=== PATIENT | female | born 1975 | race Caucasian/White ===

== ENCOUNTER 2018-06-10 21:18 | Emergency (ER) | payer BC, OTHER ==
[~2018-06-10] VITALS: Ht 157.5 cm; Wt 63.6 kg
[2018-06-10] MEDS ORDERED: DOXY100C37 PO (22:19)
[2018-06-10] MEDS ORDERED: NORCO, ANEXSIA 5/325MG TABLET (HYDROcodone/ACETAMINOPHEN) PO ONE (22:30)
[2018-06-10] MEDS ORDERED: DOXYCYCLINE HYCLATE 100 MG TAB PO ONE (22:30)
[2018-06-10] MEDS ORDERED: NORCO 5/325MG TABLET (BULK FOR ED) PO ONE (22:30)
[2018-06-10 22:56] VITALS: BP 112/72
== END 2018-06-10 22:46 | disposition home or self-care (01) ==
LOC: M ED 21:18
DX: L03.116 Cellulitis of left lower limb (principal); Z86.14 Personal history of Methicillin resistant Staphylococcus aureus infection; Z91.030 Bee allergy status

== ENCOUNTER → 2018-12-24 | Outpatient (REF) | payer OTHER ==
[~2018-12-24] MED LIST: DOXY100C37 PO
[2018-12-26 15:47] LABS: Lyme Disease IgG/IgM Antibodie <0.91 ISR (0.00-0.90); Lyme Disease IgM Ab Quantitati <0.80 index (0.00-0.79)
== END ==
LOC: M LAB REF 17:08
PROVIDERS: ATTEND Nurse Practitioner Adult Health
DX: M79.642 Pain in left hand (principal)

== ENCOUNTER → 2019-05-26 | Outpatient (REF) | payer OTHER ==
[~2019-05-26] MED LIST changes: +AMOX875T; +DIFL150T PO; +LIDVISCBTL PO; +PENI500T PO; +RIZA10TA58
[2019-05-26 18:38] LABS: BASO # 0.1 10^3/uL (0.0-0.2); BASO % 0.6 % (0.0-1.0); EOS # 0.2 10^3/uL (0.0-0.5); HEMATOCRIT 40.3 % (36.0-47.0); HEMOGLOBIN 12.8 g/dl (12.0-15.5); LYMPH # 2.3 10^3/uL (1.5-5.0); LYMPH % 27.5 % (24.0-44.0); MEAN CORPUSCULAR HEMOGLOBIN 29.9 pg (27.0-33.0); MEAN CORPUSCULAR HGB CONC 31.8 g/dl (32.0-36.5); MEAN CORPUSCULAR VOLUME 94.2 fl (80.0-96.0); MONO # 0.5 10^3/uL (0.0-0.8); MONO % 6.3 % (0.0-5.0); NEUTROPHILS # 5.3 10^3/uL (1.5-8.5); NEUTROPHILS % 63.1 % (36.0-66.0); PLATELET COUNT, AUTOMATED 262 10^3/uL (150-450); RED BLOOD COUNT 4.28 10^6/uL (4.00-5.40); WHITE BLOOD COUNT 8.4 10^3/uL (4.0-10.0)
[2019-05-26 18:54] LABS: FREE T4 0.96 NG/DL (0.76-1.46); THYROID STIMULATING HORMONE 1.15 uIU/ML (0.358-3.740)
[2019-05-26 18:56] LABS: FOLLICLE STIMULATING HORMONE 4.5 mIU/mL; LUTEINIZING HORMONE 3.7 mIU/mL
== END ==
LOC: M LAB REF 17:40
PROVIDERS: ATTEND Obstetrics & Gynecology
DX: N92.0 Excessive and frequent menstruation with regular cycle (principal)

== ENCOUNTER 2019-05-31 11:43 | Emergency (ER) | payer OTHER ==
[~2019-05-31] VITALS: Ht 157.5 cm; Wt 71.1 kg
[2019-05-31] MEDS ORDERED: KETOROLAC 60 MG/2 ML VIAL (J1885) IM ONE (12:15)
[2019-05-31 12:34] LABS: BASO # 0.1 10^3/uL (0.0-0.2); BASO % 0.5 % (0.0-1.0); EOS # 0.1 10^3/uL (0.0-0.5); EOS % 1.3 % (0.0-3.0); HEMATOCRIT 42.4 % (36.0-47.0); HEMOGLOBIN 13.4 g/dl (12.0-15.5); LYMPH # 1.9 10^3/uL (1.5-5.0); LYMPH % 17.7 % (24.0-44.0); MEAN CORPUSCULAR HEMOGLOBIN 29.5 pg (27.0-33.0); MEAN CORPUSCULAR HGB CONC 31.6 g/dl (32.0-36.5); MEAN CORPUSCULAR VOLUME 93.2 fl (80.0-96.0); MONO # 0.7 10^3/uL (0.0-0.8); MONO % 6.6 % (0.0-5.0); NEUTROPHILS # 8.1 10^3/uL (1.5-8.5); NEUTROPHILS % 73.5 % (36.0-66.0); PLATELET COUNT, AUTOMATED 261 10^3/uL (150-450); RED BLOOD COUNT 4.55 10^6/uL (4.00-5.40)
[2019-05-31 13:17] LABS: ERYTHROCYTE SEDIMENTATION RATE 4 mm/hr (0-20)
--- NOTE | 2019-05-31 13:45 | REP ---
LEFT HAND, FOUR VIEWS: There is no evidence of an acute fracture, dislocation or intrinsic bone disease. The joint spaces are normal. IMPRESSION: No fracture or dislocation. Electronically Signed by Eduardo Jacques MD 06/01/2019 05:49 P
[2019-05-31] MEDS ORDERED: ACETAMINOPHEN 500 MG TAB PO ONE (14:00)
[2019-05-31] MEDS ORDERED: CAPSAICIN 0.025% CR 60 GM TOP ONE (14:00)
[2019-05-31 14:21] VITALS: BP 124/77
== END 2019-05-31 14:25 | disposition home or self-care (01) ==
LOC: M ED 11:43
DX: M79.645 Pain in left finger(s) (principal); Z87.39 Personal history of other diseases of the musculoskeletal system and connective tissue; Z91.030 Bee allergy status
CPT/HCPCS: 36415; 73130; 80047; 85025; 85652; 86140; 96372; 99284; J1885

== ENCOUNTER → 2019-06-18 | Outpatient (CLI) | payer OTHER ==
--- NOTE | 2019-06-18 17:45 | REP ---
BILATERAL MAMMOGRAM WITH 3D TOMOSYNTHESIS: No family history of breast cancer. [facility] lifetime risk of breast cancer 12.8%. Comparison mammogram 04/22/2013. Bilateral mammogram was performed in the MLO and CC projections with 3D tomosynthesis. Breast parenchyma is moderately heterogeneously dense. Focal somewhat nodular density is seen in the outer right breast mid third approximately 1.4 cm in diameter. This is only observed on the CC view of the right breast. It is not seen on the MLO view. I see no other evidence of mass bilaterally and there are no suspicious clusters of microcalcifications. IMPRESSION: Focal nodular opacity right CC view laterally 1.4 cm in diameter. This is not seen on the MLO view. This could be artifactual. Recommend spot compression view in the CC projection with other additional mammographic images and ultrasound also possibly required. ACR 0 incomplete. BIRADS 0: BI-RADS/ACR category 0 mammogram, Incomplete: Need additional imaging evaluation and/or prior mammograms for comparison. This mammogram was interpreted with the aid of an FDA-approved computer-aided detection system. The patient states she had a clinical breast exam in 04/2019. The patient letter being requested is M0.
--- NOTE | 2019-06-19 02:52 | REP ---
Clinical: Abnormal menstrual cycles. Technique: Transabdominal pelvic ultrasound with color Doppler evaluation of the ovaries. Findings: Anteverted uterus measures 8.6 x 6.3 x 4.9 cm. Endometrial complex measures 4.9 mm thickness. Anterior subserosal fibroids are identified measuring 1.1 cm and 1.5 cm maximal diameter. Anterior lower uterine segment fibroid is also suggested measuring 2.1 cm maximal diameter. Bilateral ovaries are normal in appearance and vascularity without torsion. Right ovary measures 2.9 x 2.2 x 2.7 cm (RI 0.57). Left ovary measures 2.3 x 2.1 x 1.7 cm (RI 0.49). Impression: Suspected myomatous changes to the uterus.
== END ==
LOC: M WHC 14:54
PROVIDERS: ATTEND Obstetrics & Gynecology
DX: R92.2 Inconclusive mammogram (principal); N92.0 Excessive and frequent menstruation with regular cycle

== ENCOUNTER → 2019-06-19 | Outpatient (REF) | payer OTHER ==
[2019-06-19 19:17] LABS: C REACTIVE PROTEIN QUANTITATIV < 0.30 MG/DL (0.00-0.30); RHEUMATOID FACTOR QUANT < 10.0 IU/ML (<15.0)
[2019-06-22 14:09] LABS: ANTINUCLEAR ANTIBODIES DIRECT Negative (Negative)
== END ==
LOC: M LAB REF 16:40
PROVIDERS: ATTEND Family Medicine
DX: M79.642 Pain in left hand (principal); G43.109 Migraine with aura, not intractable, without status migrainosus

== ENCOUNTER → 2019-07-06 | Outpatient (CLI) | payer OTHER ==
--- NOTE | 2019-07-06 14:10 | REP ---
Digital diagnostic unilateral right breast mammography with CAD: History: Possible nodular density 1.4 cm in diameter laterally in the right breast on craniocaudad view only from screening study June 18, 2019. Diagnostic imaging was recommended. Comparison mammography is reviewed from April 22, 2013 as well. Mammographic findings: Magnified focal spot compression CC, mediolateral, and mediolateral oblique views demonstrate that the tissue in question compresses away to stromal elements which are felt to be unchanged from 2013 prior study. No mass-like density is seen. No architectural distortion is seen. Breast parenchyma is heterogeneously dense as noted. Impression: BIRADS category 1 negative findings. Repeat screening mammography recommended in 1 year. This mammogram was interpreted with the aid of an FDA-approved computer-aided detection system. The patient states she had a clinical breast exam in April 2019. The patient letter being requested is M1 dense.
== END ==
LOC: M WHC 12:48
PROVIDERS: ATTEND Obstetrics & Gynecology
DX: Z12.31 Encounter for screening mammogram for malignant neoplasm of breast (principal)

== ENCOUNTER → 2020-02-03 | Outpatient (REF) | payer OTHER | LOC: M LAB REF 16:06 | PROVIDERS: ATTEND Family Medicine | DX: M79.642 Pain in left hand (principal) ==

== ENCOUNTER → 2020-06-20 | Outpatient (CLI) | payer OTHER ==
--- NOTE | 2020-06-20 12:11 | REPMRS ---
Patient History The patient states she had a clinical breast exam in April 2020. Patient has history of cancer underneath eye at age 40. Family history of unknown cancer at age 55 in mother. Took hormonal contraceptives for 20 years. Digital Woman Screen Mammo: June 20, 2020 - Exam #: [id number] Bilateral CC and MLO view(s) were taken. Technologist: Cielo Oakley Technologist Prior study comparison: July 06, 2019, bilateral diagnostic unilateral mammo performed at [facility]. June 18, 2019, bilateral digital woman screen mammo performed at [facility]. April 22, 2013, bilateral bilat screen digital mammo, performed at [facility] ([facility] FINDINGS: The breast tissue is heterogeneously dense. This may lower the sensitivity of mammography. The Volpara volumetric breast density category is: C. There is a moderate amount of heterogeneously dense fibroglandular tissue which is fairly symmetric. There is no interval development of dominant mass, architectural distortion, or grouped microcalcification typical of malignancy. There has been no change in the appearance of the mammogram from the prior studies. 3-D tomosynthesis shows no additional findings. Assessment: BI-RADS/ACR category 1 mammogram. Negative Mammogram. Recommendation Routine screening mammogram of both breasts in 1 year (for women over age 40). This patient's [facility] Lifetime Breast Cancer RIsk is estimated at 12.7 %. This mammogram was interpreted with the aid of an FDA-approved computer-aided dectection system. Electronically Signed By: Nhan Espinoza MD 06/20/20 [id number]
== END ==
LOC: M WHC 10:44
PROVIDERS: ATTEND Obstetrics & Gynecology
DX: Z12.31 Encounter for screening mammogram for malignant neoplasm of breast (principal)

== ENCOUNTER → 2020-10-09 | Outpatient (CLI) | payer OTHER ==
[~2020-10-09] MED LIST changes: +OMEP40CA97 PO; +RIZA10TA58 PO; +ZONI50CA11 PO
== END ==
LOC: M LABSMTC 09:06
PROVIDERS: ATTEND Anesthesiology
DX: Z01.818 Encounter for other preprocedural examination (principal); Z11.52 Encounter for screening for COVID-19

== ENCOUNTER 2020-10-14 07:19 | Day surgery (SDC) | payer OTHER ==
[~2020-10-14] VITALS: Ht 157.5 cm; Wt 67.0 kg
[~2020-10-14 07:19] MED LIST changes: +NS 1,000 ML IV ONE
[2020-10-14] MEDS ORDERED: propofoL 200 MG/20 ML VIAL As Ordered ONE ×2 (07:22→08:54)
[2020-10-14] MEDS ORDERED: LIDOCAINE 2% 100MG/5ML SDV (FOR ANES.) As Ordered ONE (07:22)
--- NOTE | 2020-10-14 08:46 | ROOR ---
Patient Name: Tiff Mccarthy Procedure Date: 10/14/2020 8:28 AM Date of : 1975 Age: 45 Room: [facility] Gender: Female Note Status: Finalized Procedure: Upper Endoscopy + Biopsies Indications: Heartburn, Exclusion of Lopez's esophagus Providers: Akhil Tatum MD Referring MD: Tarik Turpin MD Requesting Provider: Medicines: Monitored Anesthesia Care Complications: No immediate complications. Procedure: Pre-Anesthesia Assessment: - The heart rate, respiratory rate, oxygen saturations, blood pressure, adequacy of pulmonary ventilation, and response to care were monitored throughout the procedure. The Endoscope was introduced through the mouth, and advanced to the second part of duodenum. The upper GI endoscopy was accomplished without difficulty. The patient tolerated the procedure well. Findings: The Z-line was regular and was found 39 cm from the incisors. Multiple biopsies were obtained with cold forceps for evaluation to rule out Lopez's Esophagus randomly at the gastroesophageal junction. Localized moderately erythematous mucosa without bleeding was found in the gastric antrum. Biopsies were taken with a cold forceps for Helicobacter pylori testing. Three non-bleeding cratered duodenal ulcers with no stigmata of bleeding were found in the duodenal bulb. The exam was otherwise without abnormality. Impression: - Z-line regular, 39 cm from the incisors. - Erythematous mucosa in the antrum. Biopsied. - Non-bleeding duodenal ulcers with no stigmata of bleeding. - The examination was otherwise normal. - Multiple biopsies were obtained at the gastroesophageal junction. - The examination was otherwise normal. Recommendation: - Patient has a contact number available for emergencies. The signs and symptoms of potential delayed complications were discussed with the patient. Return to normal activities tomorrow. Written discharge instructions were provided to the patient. - Resume previous diet. - Discharge patient to home. - Continue present medications. - Await pathology results. - Telephone GI clinic for pathology results in 1 week. - Return to referring physician. - Use Prilosec (omeprazole) 40 mg PO BID. - The findings and recommendations were discussed with the patient's family. Procedure Code(s): --- Professional --- 97601, Esophagogastroduodenoscopy, flexible, transoral; with biopsy, single or multiple Diagnosis Code(s): --- Professional --- K31.89, Other diseases of stomach and duodenum K26.9, Duodenal ulcer, unspecified as acute or chronic, without hemorrhage or perforation R12, Heartburn CPT copyright 2019 [employer]. All rights reserved. The codes documented in this report are preliminary and upon motor polarizer review may be revised to meet current compliance requirements. Akhil Tatum MD Akhil Tatum MD 10/14/2020 8:45:45 AM Electronically signed by Akhil Tatum MD Number of Addenda: 0 Note Initiated On: 10/14/2020 8:28 AM Estimated Blood Loss: Estimated blood loss: none.
--- NOTE | 2020-10-14 09:05 | ROOR ---
Patient Name: Tiff Mccarthy Procedure Date: 10/14/2020 8:29 AM Date of : 1975 Age: 45 Room: [facility] Gender: Female Note Status: Finalized Procedure: Total Colonoscopy to Cecum + ileoscopy Indications: Screening for colorectal malignant neoplasm Providers: Akhil Tatum MD Referring MD: Tarik uTrpin MD Requesting Provider: Medicines: Monitored Anesthesia Care Complications: No immediate complications. Procedure: Pre-Anesthesia Assessment: - The heart rate, respiratory rate, oxygen saturations, blood pressure, adequacy of pulmonary ventilation, and response to care were monitored throughout the procedure. The Colonoscope was introduced through the anus and advanced to the terminal ileum, with identification of the appendiceal orifice and IC valve. The colonoscopy was performed without difficulty. The patient tolerated the procedure well. The quality of the bowel preparation was excellent. Findings: The perianal and digital rectal examinations were normal. Non-bleeding internal hemorrhoids were found during retroflexion. The hemorrhoids were small. The exam was otherwise without abnormality on direct and retroflexion views. The terminal ileum appeared normal. The exam was otherwise without abnormality on direct and retroflexion views. Impression: - Non-bleeding internal hemorrhoids. - The examination was otherwise normal on direct and retroflexion views. - The examined portion of the ileum was normal. - The examination was otherwise normal on direct and retroflexion views. - No specimens collected. - The exam was otherwise normal to the cecum. Recommendation: - Patient has a contact number available for emergencies. The signs and symptoms of potential delayed complications were discussed with the patient. Return to normal activities tomorrow. Written discharge instructions were provided to the patient. - High fiber diet. - Discharge patient to home. - Continue present medications. - Repeat colonoscopy in 10 years for screening purposes. - Return to referring physician. - The findings and recommendations were discussed with the patient's family. Procedure Code(s): --- Professional --- 21253, Colonoscopy, flexible; diagnostic, including collection of specimen(s) by brushing or washing, when performed (separate procedure) Diagnosis Code(s): --- Professional --- Z12.11, Encounter for screening for malignant neoplasm of colon K64.8, Other hemorrhoids CPT copyright 2019 [employer]. All rights reserved. The codes documented in this report are preliminary and upon roof truss machine tender review may be revised to meet current compliance requirements. Akhil Tatum MD Akhil Tatum MD 10/14/2020 9:05:09 AM Electronically signed by Akhil Tatum MD Number of Addenda: 0 Note Initiated On: 10/14/2020 8:29 AM Estimated Blood Loss: Estimated blood loss: none.
[2020-10-14 09:30] VITALS: BP 110/69
== END 2020-10-14 09:35 | disposition home or self-care (01) ==
LOC: M OPP 07:19
PROVIDERS: ATTEND Internal Medicine Gastroenterology
DX: Z12.11 Encounter for screening for malignant neoplasm of colon (principal); Z87.19 Personal history of other diseases of the digestive system; K64.8 Other hemorrhoids; K31.89 Other diseases of stomach and duodenum; K26.9 Duodenal ulcer, unspecified as acute or chronic, without hemorrhage or perforation; K21.9 Gastro-esophageal reflux disease without esophagitis; R12 Heartburn; Z79.899 Other long term (current) drug therapy; Z91.030 Bee allergy status; Z87.891 Personal history of nicotine dependence

== ENCOUNTER → 2020-12-15 | Outpatient (REF) | payer OTHER ==
[~2020-12-15] MED LIST changes: -DOXY100C37 PO; +DOXY1CAP62 PO; -NS 1,000 ML IV ONE; +OMEP40CA4 PO; -OMEP40CA97 PO
== END ==
LOC: M LAB REF 20:13
PROVIDERS: ATTEND Physician Assistant
DX: L03.116 Cellulitis of left lower limb (principal)

== ENCOUNTER 2021-01-30 16:58 | Emergency (ER) | payer OTHER ==
[~2021-01-30] VITALS: Ht 157.5 cm; Wt 65.9 kg
[2021-01-30] MEDS ORDERED: DICL50TA2 PO (17:17)
[2021-01-30 17:51] LABS: BASO % 0.4 % (0.0-1.0); EOS # 0.2 10^3/uL (0.0-0.5); EOS % 1.5 % (0.0-3.0); HEMATOCRIT 40.2 % (36.0-47.0); HEMOGLOBIN 13.3 g/dl (12.0-15.5); LYMPH # 2.4 10^3/uL (1.5-5.0); LYMPH % 24.1 % (24.0-44.0); MEAN CORPUSCULAR HEMOGLOBIN 30.1 pg (27.0-33.0); MEAN CORPUSCULAR HGB CONC 33.1 g/dl (32.0-36.5); MONO # 0.6 10^3/uL (0.0-0.8); MONO % 5.7 % (2.0-8.0); NEUTROPHILS # 6.7 10^3/uL (1.5-8.5); NEUTROPHILS % 67.9 % (36.0-66.0); PLATELET COUNT, AUTOMATED 285 10^3/uL (150-450); RED BLOOD COUNT 4.42 10^6/uL (4.00-5.40); WHITE BLOOD COUNT 9.8 10^3/uL (4.0-10.0)
[2021-01-30 18:17] LABS: BLOOD UREA NITROGEN 12 MG/DL (7-18); CALCIUM LEVEL 8.7 MG/DL (8.5-10.1); CARBON DIOXIDE LEVEL 28 MEQ/L (21-32); CHLORIDE LEVEL 110 MEQ/L (98-107); CK-MB VALUE MASS 2.1 NG/ML (<3.6); CPK CREATINE PHOSPHOKINASE 101 U/L (26-192); CREATININE FOR GFR 0.87 MG/DL (0.55-1.30); GLOMERULAR FILTRATION RATE > 60.0 (>58); GLUCOSE, FASTING 91 MG/DL (70-100); MB/CK RELATIVE INDEX 2.08 (< OR =4); POTASSIUM SERUM 3.7 MEQ/L (3.5-5.1); SODIUM LEVEL 142 MEQ/L (136-145); TROPONIN I < 0.02 NG/ML (< 0.10)
--- NOTE | 2021-01-30 18:39 | REP ---
INDICATION: CHEST PAIN. COMPARISON: None. FINDINGS: The technique utilized in obtaining the radiograph has magnified the cardiac silhouette and accentuated the interstitial markings. The superior mediastinal structures are midline. The cardiac silhouette is unremarkable in size, shape, and position. The diaphragmatic surfaces of the lungs are regular, and the costophrenic angles are clear. The pulmonary valencia are clear. The imaged osseous structures are intact. IMPRESSION: There is no acute cardiopulmonary disease. <Electronically signed by Akbar Zambrano > 01/30/21 [id number]
[2021-01-30] MEDS ORDERED: KETOROLAC 30 MG/ML 1ML VIAL IV ONE (18:50)
--- NOTE | 2021-01-30 19:52 | ECGEPIP ---
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
--- NOTE | 2021-01-30 19:53 | ECGEPIP ---
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
[2021-01-30 20:53] LABS: CPK CREATINE PHOSPHOKINASE 80 U/L (26-192); TROPONIN I < 0.02 NG/ML (< 0.10)
[2021-01-30 21:43] VITALS: BP 128/78
== END 2021-01-30 21:48 | disposition left against medical advice (07) ==
LOC: M ED 16:58
DX: R07.9 Chest pain, unspecified (principal); Z53.9 Procedure and treatment not carried out, unspecified reason; R00.1 Bradycardia, unspecified; K21.9 Gastro-esophageal reflux disease without esophagitis; Z79.899 Other long term (current) drug therapy; Z91.030 Bee allergy status
CPT/HCPCS: 71045; 80048; 82550; 82553; 85025; 85379; 93005; 93041; 94760; 96374; 99285; J1885

== ENCOUNTER → 2021-03-23 | Outpatient (CLI) | payer OTHER ==
[~2021-03-23] MED LIST changes: +DICL50TA2 PO; +DOXY-443 PO; -DOXY1CAP62 PO
[2021-03-23 14:14] LABS: BLOOD UREA NITROGEN 17 MG/DL (7-18); CALCIUM LEVEL 9.1 MG/DL (8.5-10.1); CARBON DIOXIDE LEVEL 25 MEQ/L (21-32); CHLORIDE LEVEL 110 MEQ/L (98-107); CREATININE FOR GFR 0.95 MG/DL (0.55-1.30); GLOMERULAR FILTRATION RATE > 60.0 (>58); GLUCOSE, FASTING 92 MG/DL (70-100); SODIUM LEVEL 141 MEQ/L (136-145)
== END ==
LOC: M PLALAB 09:28
PROVIDERS: ATTEND Internal Medicine Cardiovascular Disease
DX: I10 Essential (primary) hypertension (principal)

== ENCOUNTER 2021-04-14 16:21 | Observation (INO) | payer OTHER ==
[~2021-04-14] VITALS: Ht 157.5 cm; Wt 63.6 kg
[2021-04-14] MEDS ORDERED: ceFAZolin SOD 2 GM in IV 1 EA IV ONE (16:45)
[2021-04-14] MEDS ORDERED: NS 1,000 ML IV ONE (16:45)
[2021-04-14] MEDS ORDERED: NS 1,000 ML IV SCH (16:50)
[2021-04-14] MEDS ORDERED: BOOSTRIX/ADACEL VACCINE (DIPHTH/PERTUSS/ACELL/TETANUS) 0.5ML SYR IM ONE (16:50)
[2021-04-14] MEDS: MIDAZOLAM INJ 2MG/2ML VIAL (J2250 PER 1MG) IV PRN ×2 (17:01→17:06)
[2021-04-14] MEDS ORDERED: fentaNYL 100 MCG/2 ML INJECTION As Ordered ONE ×3 (17:03→19:32)
[2021-04-14] MEDS ORDERED: fentaNYL 100 MCG/2 ML INJECTION IV ONE ×2 (17:05→18:45)
[2021-04-14 17:24] LABS: BASO # 0.1 10^3/uL (0.0-0.2); BASO % 0.4 % (0.0-1.0); EOS # 0.2 10^3/uL (0.0-0.5); EOS % 1.3 % (0.0-3.0); HEMATOCRIT 40.3 % (36.0-47.0); HEMOGLOBIN 13.2 g/dl (12.0-15.5); LYMPH # 3.6 10^3/uL (1.5-5.0); LYMPH % 19.8 % (24.0-44.0); MEAN CORPUSCULAR HEMOGLOBIN 29.6 pg (27.0-33.0); MEAN CORPUSCULAR HGB CONC 32.8 g/dl (32.0-36.5); MEAN CORPUSCULAR VOLUME 90.4 fl (80.0-96.0); MONO % 5.7 % (2.0-8.0); NEUTROPHILS # 13.1 10^3/uL (1.5-8.5); NEUTROPHILS % 72.2 % (36.0-66.0); PLATELET COUNT, AUTOMATED 288 10^3/uL (150-450); RED BLOOD COUNT 4.46 10^6/uL (4.00-5.40); WHITE BLOOD COUNT 18.1 10^3/uL (4.0-10.0)
[2021-04-14 17:26] LABS: INR 0.85
[2021-04-14 17:27] LABS: PARTIAL THROMBOPLASTIN TIME 25.4 SECONDS (25.9-37.0)
[2021-04-14] MEDS ORDERED: ISOVUE-370 76% 100ML VIAL As Ordered ONE (17:35)
[2021-04-14 17:36] LABS: ALBUMIN 3.7 GM/DL (3.2-5.2); ALT/SGPT 24 U/L (12-78); BILIRUBIN,DIRECT < 0.1 MG/DL (0.0-0.2); BILIRUBIN,TOTAL 0.2 MG/DL (0.2-1.0); CK-MB VALUE MASS 4.1 NG/ML (<3.6); LIPASE 105 U/L (73-393); MB/CK RELATIVE INDEX 1.59 (< OR =4); TOTAL PROTEIN 6.5 GM/DL (6.4-8.2)
[2021-04-14 17:57] LABS: BLOOD UREA NITROGEN 17 MG/DL (7-18); CALCIUM LEVEL 8.7 MG/DL (8.5-10.1); CARBON DIOXIDE LEVEL 26 MEQ/L (21-32); CHLORIDE LEVEL 109 MEQ/L (98-107); CREATININE FOR GFR 1.02 MG/DL (0.55-1.30); GLOMERULAR FILTRATION RATE > 60.0 (>58); GLUCOSE, FASTING 82 MG/DL (70-100); POTASSIUM SERUM 3.5 MEQ/L (3.5-5.1); SODIUM LEVEL 143 MEQ/L (136-145)
[2021-04-14 18:04] LABS: RSV AMPLIFICATION NEGATIVE (NEGATIVE)
[2021-04-14] MEDS ORDERED: ceFAZolin 1GM VIAL (J0690 PER 500MG) As Ordered ONE (18:22)
[2021-04-14] MEDS ORDERED: MIDAZOLAM INJ 2MG/2ML VIAL (J2250 PER 1MG) As Ordered ONE (18:29)
[2021-04-14] MEDS ORDERED: dexameTHASONE 4 MG/ML 1ML VIAL (J1100 PER 1MG) As Ordered ONE (18:30)
[2021-04-14] MEDS ORDERED: LIDOCAINE 2% 100MG/5ML SDV (FOR ANES.) As Ordered ONE (18:30)
[2021-04-14] MEDS ORDERED: ONDANSETRON 4MG/2ML VIAL As Ordered ONE (18:30)
[2021-04-14] MEDS ORDERED: propofoL 200 MG/20 ML VIAL As Ordered ONE (18:31)
[2021-04-14] MEDS ORDERED: ROCURONIUM BROMIDE 50 MG/5 ML VIAL As Ordered ONE ×3 (19:05→20:42)
[2021-04-14] MEDS ORDERED: HOME MED LIST COMPLETE! XX SCH (19:05)
[2021-04-14] MEDS ORDERED: ESMOLOL INJ 100MG/10ML VIAL As Ordered ONE (19:22)
[2021-04-14] MEDS ORDERED: ACETAMINOPHEN 1000MG 100ML IV BTL (OFIRMEV) (J0131 PER 10MG) As Ordered ONE (19:29)
[2021-04-14] MEDS ORDERED: SUGAMMADEX SODIUM 500 MG/5 ML VIAL (BRIDION) As Ordered ONE (19:38)
[2021-04-14] MEDS ORDERED: ceFAZolin 2 GM/D5W 50 ML IV BAG (J0690 PER 500MG) As Ordered ONE (20:21)
[2021-04-14] MEDS: DOCUSATE SODIUM 100MG CAPSULE PO SCH (21:00)
[2021-04-14] MEDS ORDERED: PHENYLephrine 500MCG 5ML (100MCG/ML) SYRINGE As Ordered ONE (22:04)
[2021-04-14] MEDS ORDERED: LR 1,000 ML IV SCH ×2 (22:45→23:15)
[2021-04-14] MEDS ORDERED: oxyCODONE 5MG TAB PO PRN (22:45)
[2021-04-14] MEDS ORDERED: ONDANSETRON 4MG/2ML VIAL IV PRN (22:45)
[2021-04-14] MEDS: fentaNYL 100 MCG/2 ML INJECTION IV PRN ×4 (22:47→23:16)
[2021-04-14] MEDS ORDERED: MAALOX 30 ML SUSP *UDC PO PRN (23:05)
[2021-04-14] MEDS ORDERED: ACETAMINOPHEN TAB 650MG DOSE (2X325MG) PO PRN (23:05)
[2021-04-14] MEDS ORDERED: MOM 30ML SUSPENSION UDC PO PRN (23:05)
[2021-04-14] MEDS ORDERED: MORPHINE 2 MG/ML 1ML VIAL (J2270) IV PRN (23:20)
[2021-04-14] MEDS ORDERED: HYDROmorphone HCL 2MG/ML 1ML VIAL As Ordered ONE (23:30)
[2021-04-14] MEDS: HYDROMORPHONE HCL 0.5 MG/ 0.5 ML SYRINGE (J1170 PER 1) IV PRN ×5 (23:34→23:52)
[2021-04-15] VITALS (9 sets, daily range): BP systolic 113–131; BP diastolic 73–90
[2021-04-15] MEDS: ceFAZolin SOD 2 GM in IV 1 EA IV SCH ×3 (01:57→17:00)
[2021-04-15] MEDS: PERCOCET 5MG/325MG TAB PO PRN ×4 (01:57→20:45)
[2021-04-15] MEDS ORDERED: MORPHINE 2 MG/ML 1ML VIAL (J2270) IV PRN (06:40)
[2021-04-15 06:51] LABS: MEAN CORPUSCULAR HEMOGLOBIN 30.1 pg (27.0-33.0); MEAN CORPUSCULAR HGB CONC 32.7 g/dl (32.0-36.5); MEAN CORPUSCULAR VOLUME 91.9 fl (80.0-96.0); PLATELET COUNT, AUTOMATED 213 10^3/uL (150-450); RED BLOOD COUNT 3.59 10^6/uL (4.00-5.40); WHITE BLOOD COUNT 13.2 10^3/uL (4.0-10.0)
[2021-04-15 06:55] LABS: HEMOGLOBIN 10.8 g/dl (12.0-15.5)
[2021-04-15 07:05] LABS: BLOOD UREA NITROGEN 10 MG/DL (7-18); CALCIUM LEVEL 7.7 MG/DL (8.5-10.1); CARBON DIOXIDE LEVEL 24 MEQ/L (21-32); CHLORIDE LEVEL 113 MEQ/L (98-107); CREATININE FOR GFR 0.79 MG/DL (0.55-1.30); GLOMERULAR FILTRATION RATE > 60.0 (>58); GLUCOSE, FASTING 124 MG/DL (70-100); POTASSIUM SERUM 4.4 MEQ/L (3.5-5.1); SODIUM LEVEL 144 MEQ/L (136-145)
[2021-04-15] MEDS: DOCUSATE SODIUM 100MG CAPSULE PO SCH ×2 (08:28→20:44)
[2021-04-15] MEDS: ZONISAMIDE 50 MG CAP (ZONEGRAN) PO SCH ×2 (08:28→20:45)
[2021-04-15] MEDS: OMEPRAZOLE 20MG CAP PO SCH ×2 (08:28→20:45)
[2021-04-15] MEDS: MORPHINE 4 MG/ML 1ML VIAL/SYRINGE (J2270) IV PRN ×3 (09:59→23:35)
[2021-04-15] MEDS ORDERED: traMADol 50 MG TAB PO ONE (13:00)
[2021-04-15] MEDS: RIZATRIPTAN MLT 10 MG TAB PO PRN (16:15)
[2021-04-16] MEDS: PERCOCET 5MG/325MG TAB PO PRN ×3 (04:08→19:55)
[2021-04-16 06:00] VITALS: BP 119/75
[2021-04-16] MEDS: MORPHINE 4 MG/ML 1ML VIAL/SYRINGE (J2270) IV PRN ×4 (07:56→23:21)
[2021-04-16] MEDS: OMEPRAZOLE 20MG CAP PO SCH ×2 (07:58→20:00)
[2021-04-16] MEDS: ZONISAMIDE 50 MG CAP (ZONEGRAN) PO SCH ×2 (07:58→20:00)
[2021-04-16] MEDS: DOCUSATE SODIUM 100MG CAPSULE PO SCH ×2 (07:58→20:00)
[2021-04-16] MEDS: RIZATRIPTAN MLT 10 MG TAB PO PRN (12:13)
[2021-04-16] MEDS: ENOXAPARIN 40MG/0.4ML SYRINGE (J1650 PER 10MG) SC SCH (13:14)
[2021-04-16] MEDS: KETOROLAC 30 MG/ML 1ML VIAL IV SCH ×2 (13:15→18:14)
[2021-04-16 14:00] VITALS: BP 121/88
[2021-04-16 21:51] VITALS: BP 118/82
[2021-04-17] MEDS: KETOROLAC 30 MG/ML 1ML VIAL IV SCH ×4 (00:44→18:03)
[2021-04-17 06:00] VITALS: BP 116/81
[2021-04-17 08:16] LABS: HEMATOCRIT 30.5 % (36.0-47.0); MEAN CORPUSCULAR HEMOGLOBIN 30.5 pg (27.0-33.0); MEAN CORPUSCULAR HGB CONC 32.8 g/dl (32.0-36.5); PLATELET COUNT, AUTOMATED 188 10^3/uL (150-450); RED BLOOD COUNT 3.28 10^6/uL (4.00-5.40); WHITE BLOOD COUNT 10.2 10^3/uL (4.0-10.0)
[2021-04-17] MEDS: ENOXAPARIN 40MG/0.4ML SYRINGE (J1650 PER 10MG) SC SCH (08:33)
[2021-04-17] MEDS: ZONISAMIDE 50 MG CAP (ZONEGRAN) PO SCH ×2 (08:33→20:14)
[2021-04-17] MEDS: DOCUSATE SODIUM 100MG CAPSULE PO SCH ×2 (08:34→20:14)
[2021-04-17] MEDS: OMEPRAZOLE 20MG CAP PO SCH ×2 (08:34→20:14)
[2021-04-17] MEDS: RIZATRIPTAN MLT 10 MG TAB PO PRN (08:35)
[2021-04-17] MEDS: PERCOCET 5MG/325MG TAB PO PRN ×2 (08:35→15:52)
[2021-04-17 08:48] LABS: BLOOD UREA NITROGEN 12 MG/DL (7-18); CALCIUM LEVEL 8.1 MG/DL (8.5-10.1); CARBON DIOXIDE LEVEL 26 MEQ/L (21-32); CHLORIDE LEVEL 111 MEQ/L (98-107); CREATININE FOR GFR 0.66 MG/DL (0.55-1.30); GLOMERULAR FILTRATION RATE > 60.0 (>58); GLUCOSE, FASTING 105 MG/DL (70-100); MAGNESIUM LEVEL 2.1 MG/DL (1.8-2.4); POTASSIUM SERUM 3.9 MEQ/L (3.5-5.1); SODIUM LEVEL 143 MEQ/L (136-145)
[2021-04-17] MEDS: MORPHINE 4 MG/ML 1ML VIAL/SYRINGE (J2270) IV PRN ×3 (10:39→20:00)
[2021-04-17 14:00] VITALS: BP 114/75
[2021-04-17 20:53] VITALS: BP 109/78
[2021-04-18] MEDS: KETOROLAC 30 MG/ML 1ML VIAL IV SCH ×3 (00:20→12:27)
[2021-04-18] MEDS: PERCOCET 5MG/325MG TAB PO PRN ×2 (03:45→12:29)
[2021-04-18 06:00] VITALS: BP 105/66
[2021-04-18 06:06] LABS: HEMATOCRIT 30.9 % (36.0-47.0); HEMOGLOBIN 9.9 g/dl (12.0-15.5); MEAN CORPUSCULAR HEMOGLOBIN 29.6 pg (27.0-33.0); MEAN CORPUSCULAR VOLUME 92.2 fl (80.0-96.0); PLATELET COUNT, AUTOMATED 196 10^3/uL (150-450); RED BLOOD COUNT 3.35 10^6/uL (4.00-5.40); WHITE BLOOD COUNT 7.5 10^3/uL (4.0-10.0)
[2021-04-18 06:24] LABS: BLOOD UREA NITROGEN 15 MG/DL (7-18); CALCIUM LEVEL 7.8 MG/DL (8.5-10.1); CARBON DIOXIDE LEVEL 26 MEQ/L (21-32); CHLORIDE LEVEL 113 MEQ/L (98-107); CREATININE FOR GFR 0.65 MG/DL (0.55-1.30); GLOMERULAR FILTRATION RATE > 60.0 (>58); GLUCOSE, FASTING 101 MG/DL (70-100); POTASSIUM SERUM 3.9 MEQ/L (3.5-5.1); SODIUM LEVEL 144 MEQ/L (136-145)
[2021-04-18] MEDS: OMEPRAZOLE 20MG CAP PO SCH (08:15)
[2021-04-18] MEDS: DOCUSATE SODIUM 100MG CAPSULE PO SCH (08:15)
[2021-04-18] MEDS: ZONISAMIDE 50 MG CAP (ZONEGRAN) PO SCH (08:15)
[2021-04-18] MEDS: RIZATRIPTAN MLT 10 MG TAB PO PRN (08:16)
[2021-04-18] MEDS: ENOXAPARIN 40MG/0.4ML SYRINGE (J1650 PER 10MG) SC SCH (08:16)
[2021-04-18] MEDS: MORPHINE 4 MG/ML 1ML VIAL/SYRINGE (J2270) IV PRN (09:11)
[2021-04-18] MEDS ORDERED: NAPR-885 PO (10:37)
[2021-04-18] MEDS ORDERED: PERCOCET PO (10:37)
[2021-04-18] MEDS ORDERED: ACET650T61 PO (10:40)
[2021-04-18] MEDS ORDERED: ONDANSETRON 4MG/2ML VIAL IV ONE (12:05)
== END 2021-04-18 15:37 | disposition home or self-care (01) ==
LOC: M ED 16:21 → EDBD 16:21 → M ED INP 16:22 → M SDC 16:50 → M ED 19:20 → M MS5PR 04-15 00:26 → M SDC 04-15 00:26 → M MS5PR 04-18 15:37
PROVIDERS: ADMIT Internal Medicine; ATTEND Internal Medicine
DX: S92.192 Other fracture of left talus (principal); V49.40XA Driver injured in collision with unspecified motor vehicles in traffic accident, initial encounter; Y92.410 Unspecified street and highway as the place of occurrence of the external cause; Y93.9 Activity, unspecified; Y99.9 Unspecified external cause status; G43.909 Migraine, unspecified, not intractable, without status migrainosus; K50.90 Crohn's disease, unspecified, without complications; K21.9 Gastro-esophageal reflux disease without esophagitis; Z91.030 Bee allergy status
CPT/HCPCS: 11010; 20690; 28445; 36415; 70450; 71260; 72125; 73600; 73610; 73700; 74177; 76000; 80047; 80048; 80076; 82550; 82553; 83605; 83690; 83735; 84484; 85025; 85027; 85610; 85730; 86850; 86900; 86901; 87631; 87641; 90471; 90715; 93005; 93041; 94760; 96361; 96365; 96366; 96372; 96375; 96376; 97161; 97165; 97530; 97535; 99285; J0131; J0690; J1100; J1650; J1885; J2250; J2270; J2370; J2405; J3010; Q9967

== ENCOUNTER → 2021-04-27 | Outpatient (CLI) | payer OTHER ==
[~2021-04-27] MED LIST changes: +ACET650T61 PO; +NAPR-885 PO; +PERCOCET PO
--- NOTE | 2021-04-28 04:50 | REP ---
INDICATION: SURGICAL AFTERCARE. COMPARISON: 04/14/2021 TECHNIQUE: AP and lateral views left ankle FINDINGS: Status post external fixation for ankle fracture/dislocation. Satisfactory alignment is noted. Lateral view demonstrates small bony fracture fragments just above the posterior aspect of the calcaneus. Overlying soft tissue swelling improved. IMPRESSION: Satisfactory external fixation. <Electronically signed by Micheal Antony > 04/28/21 044
--- NOTE | 2021-04-28 04:52 | REP ---
INDICATION: SURGICAL AFTERCARE. COMPARISON: 04/14/2021 TECHNIQUE: AP and lateral views left foot FINDINGS: Patient is status post satisfactory external fixation for fracture dislocation at the ankle. Surrounding soft tissue swelling again noted. IMPRESSION: Satisfactory external fixation <Electronically signed by Micheal Antony > 04/28/21 0448
== END ==
LOC: M SOG 14:55
PROVIDERS: ATTEND Orthopaedic Surgery Sports Medicine
DX: Z48.89 Encounter for other specified surgical aftercare (principal)

== ENCOUNTER → 2021-06-19 | Outpatient (RCR) | payer OTHER | LOC: M PT 06-07 14:24 | PROVIDERS: ATTEND Orthopaedic Surgery | DX: S93.05XD Dislocation of left ankle joint, subsequent encounter (principal); X58.XXXA Exposure to other specified factors, initial encounter ==

== ENCOUNTER → 2021-07-17 | Outpatient (RCR) | payer OTHER | LOC: M PT 06-21 14:52 | PROVIDERS: ATTEND Orthopaedic Surgery | DX: S82.899D Other fracture of unspecified lower leg, subsequent encounter for closed fracture with routine healing (principal); W18.30XD Fall on same level, unspecified, subsequent encounter ==

== ENCOUNTER → 2021-08-17 | Outpatient (RCR) | payer OTHER | LOC: M PT 07-19 14:49 | PROVIDERS: ATTEND Orthopaedic Surgery | DX: S93.05XD Dislocation of left ankle joint, subsequent encounter (principal) ==

== ENCOUNTER 2021-09-13 15:09 | Outpatient (RCR) | payer OTHER | END 2021-09-16 | LOC: M PT 15:09 | PROVIDERS: ATTEND Orthopaedic Surgery | DX: S93.05XD Dislocation of left ankle joint, subsequent encounter (principal); W18.30XD Fall on same level, unspecified, subsequent encounter ==

== ENCOUNTER 2021-10-11 15:30 | Outpatient (RCR) | payer OTHER | END 2021-10-17 | LOC: M PT 15:30 | PROVIDERS: ATTEND Orthopaedic Surgery | DX: M25.572 Pain in left ankle and joints of left foot (principal) ==

== ENCOUNTER 2021-11-08 15:15 | Outpatient (RCR) | payer OTHER | END 2021-11-16 | LOC: M PT 15:15 | PROVIDERS: ATTEND Orthopaedic Surgery | DX: M25.572 Pain in left ankle and joints of left foot (principal) ==

== ENCOUNTER 2022-03-16 13:41 | Outpatient (RCR) | payer OTHER | END 2022-03-19 | LOC: M PT 13:41 | PROVIDERS: ATTEND Orthopaedic Surgery | DX: M25.572 Pain in left ankle and joints of left foot (principal) ==

== ENCOUNTER → 2022-07-05 | Outpatient (CLI) | payer OTHER | LOC: M SOG 10:57 | PROVIDERS: ATTEND Orthopaedic Surgery | DX: S93.05XD Dislocation of left ankle joint, subsequent encounter (principal); W18.30XD Fall on same level, unspecified, subsequent encounter ==

== ENCOUNTER → 2022-07-10 | Outpatient (CLI) | payer OTHER | LOC: M PLAIMG 13:14 | PROVIDERS: ATTEND Orthopaedic Surgery | DX: S93.05XD Dislocation of left ankle joint, subsequent encounter (principal); W18.30XD Fall on same level, unspecified, subsequent encounter ==

== ENCOUNTER → 2022-07-17 | Outpatient (RCR) | payer OTHER | LOC: M PT 06-27 14:58 | PROVIDERS: ATTEND Family Medicine | DX: S93.05XS Dislocation of left ankle joint, sequela (principal); S91.002S Unspecified open wound, left ankle, sequela; G90.522 Complex regional pain syndrome I of left lower limb ==

== ENCOUNTER → 2022-07-25 | Outpatient (CLI) | payer OTHER | LOC: M PLAIMG 09:53 | PROVIDERS: ATTEND Orthopaedic Surgery | DX: S93.05XD Dislocation of left ankle joint, subsequent encounter (principal) ==

== ENCOUNTER → 2022-11-27 | Outpatient (CLI) | payer OTHER | LOC: M WHC 14:19 | PROVIDERS: ATTEND Family Medicine | DX: Z12.31 Encounter for screening mammogram for malignant neoplasm of breast (principal) ==

== ENCOUNTER → 2022-12-11 | Outpatient (CLI) | payer OTHER | LOC: M PAIN 15:00 | PROVIDERS: ATTEND Anesthesiology | DX: M79.2 Neuralgia and neuritis, unspecified (principal); S99.922A Unspecified injury of left foot, initial encounter; M25.572 Pain in left ankle and joints of left foot; G43.909 Migraine, unspecified, not intractable, without status migrainosus; K21.9 Gastro-esophageal reflux disease without esophagitis; J30.9 Allergic rhinitis, unspecified; K50.90 Crohn's disease, unspecified, without complications; E78.5 Hyperlipidemia, unspecified; F41.9 Anxiety disorder, unspecified; Z87.891 Personal history of nicotine dependence; Z79.891 Long term (current) use of opiate analgesic; Z79.899 Other long term (current) drug therapy; Z91.030 Bee allergy status; X58.XXXA Exposure to other specified factors, initial encounter; Y92.9 Unspecified place or not applicable; Y93.9 Activity, unspecified; Y99.9 Unspecified external cause status ==

== ENCOUNTER → 2023-04-22 | Outpatient (REF) | payer OTHER | LOC: M SFHCWAGY 17:00 | PROVIDERS: ATTEND Nurse Practitioner Family | DX: Z12.72 Encounter for screening for malignant neoplasm of vagina (principal) ==

== ENCOUNTER → 2025-02-24 | Outpatient (CLI) | payer MEDICARE ==
[~2025-02-24] MED LIST changes: +DOXY-441 PO; -DOXY-443 PO
== END ==
LOC: M WHC 12:52
PROVIDERS: ATTEND Nurse Practitioner Family
DX: Z12.31 Encounter for screening mammogram for malignant neoplasm of breast (principal)

== ENCOUNTER → 2025-05-10 | Outpatient (REF) | payer MEDICARE | LOC: M SFHCWAGY 17:12 | PROVIDERS: ATTEND Nurse Practitioner Family | DX: N73.9 Female pelvic inflammatory disease, unspecified (principal) ==